=== PATIENT | female | born 1935 | race Caucasian/White ===

== ENCOUNTER 2016-12-02 12:05 | Inpatient (IN) ==
[~2016-12-02 12:05] MED LIST: TORADOL IM ONE
[2016-12-02] MEDS ORDERED: TORADOL IV PRN (13:25)
[2016-12-02] MEDS ORDERED: PHENERGAN IV PRN (13:25)
[2016-12-02] MEDS ORDERED: MIRALAX PO ONE (13:26)
--- NOTE | 2016-12-02 15:32 | Diag Imaging Result Doc PS360 ---
EXAM: MRI LUMBAR SPINE W/O CONTRAST HISTORY: Back pain TECHNIQUE: Axial and sagittal images obtained in multiple sequences. COMPARISON: None. FINDINGS: There is mild scoliosis. No compressed lumbar vertebra. There is abnormal signal within the T12 vertebra with mild loss of height. The conus is at T12-L1. There are scattered Schmorl's nodes. T12-L1: No spinal stenosis or cord compression. Neither neural foramen is narrowed. Normal disc. L1-2: Mild to moderate disc bulge. Mild facet hypertrophy. No spinal stenosis. Neither neural foramen is narrowed. L2-3: Mild bulging disc. Moderate facet hypertrophy. Mild spinal stenosis. Neither neural foramen is narrowed. L3-4: Small bulging disc. Moderate facet hypertrophy. Mild spinal stenosis. Neither neural foramen is narrowed. L4-5: There is a small bulging disc with a vacuum phenomena. Prominent facet hypertrophy. There is marked spinal stenosis. There is mild to moderate narrowing of each neural foramen. L5-S1: There is a right lateral disc bulge. This causes moderate narrowing of the right neural foramen. There is also facet hypertrophy with moderate spinal stenosis. IMPRESSION: 1.Edema within the T12 vertebra consistent with a recent compression fracture 2.Multiple bulging discs with facet hypertrophy resulting in spinal stenosis and neural foraminal narrowing as described. Spinal stenosis is most pronounced at L4-5. Electronically signed by Riki Byrnes 12/02/2016 3:29 PM
--- NOTE | 2016-12-02 15:36 | Diag Imaging Result Doc PS360 ---
EXAM: MRI THORACIC SPINE W/WO CONTR HISTORY: backpain TECHNIQUE: Axial and sagittal images obtained in multiple sequences. These are followed by post contrasted axial and sagittal images. COMPARISON: None. FINDINGS: There is abnormal signal within the T12 vertebra. There is loss of height to the superior endplate. No other compressed thoracic vertebra. No subluxation. No disc herniation. No disc fragment. There is posterior bulging bone along the superior aspect of the T12 vertebra. This causes mild spinal stenosis, but no cord compression. No focal abnormality to the thoracic cord. No enhancing lesion on the post contrasted images. IMPRESSION: Recent compression fracture to the T12 vertebra with mild spinal stenosis. Electronically signed by Riki Byrnes 12/02/2016 3:34 PM
[2016-12-02] MEDS ORDERED: TORADOL IM ONE (16:58)
[2016-12-02] MEDS ORDERED: PHENERGAN IM ONE (17:00)
[2016-12-02] MEDS: LOVENOX SUBQ SCH (17:12)
[2016-12-02 17:58] LABS: URINE MICRO REVIEW NEEDED? NO; URINE SOURCE VOIDED
[2016-12-02 18:01] LABS: BILIRUBIN URINE NEGATIVE (NEGATIVE); BLOOD URINE NEGATIVE (NEGATIVE); COLOR YELLOW; GLUCOSE URINE NEGATIVE (NEGATIVE); LEUKOCYTES URINE MODERATE (NEGATIVE); NITRITE URINE POSITIVE (NEGATIVE); PH URINE 6.5; PROTEIN URINE TRACE mg/dL (NEGATIVE); SP GRAVITY URINE 1.018; TURBIDITY URINE HAZY (CLEAR); UR EPITHELIAL CELLS <10 /HPF (<10); URINE BACTERIA 4+ /HPF; URINE RBC <10 /HPF (<10); URINE WBC TNTC /HPF (<10); UROBILINOGEN URINE 2 mg/dL (NORMAL)
[2016-12-02 20:13] LABS: MANUAL DIFF NEEDED? NO
[2016-12-02 20:18] LABS: BASO% 0.2 % (0.0-0.8); EOS# 0.27 X1000 (0.0-0.7); EOS% 1.7 % (0.0-10.0); HEMATOCRIT 37.3 % (37.0-47.0); HEMOGLOBIN 12.9 g/dL (12.0-16.0); IMM GRAN# 0.06 X1000 (0.0-0.04); IMM GRAN% 0.4 % (0.0-0.5); LYMPH# 3.03 X1000 (1.2-3.4); LYMPH% 19.5 % (20.5-51.1); MCHC 34.6 g/dL (33-37); MCV 89.7 FL (81-99); MONO# 1.13 X1000 (0.11-0.59); MONO% 7.3 % (1.7-9.3); MPV 9.3 FL (7.4-10.4); NEUT% 70.9 % (42.2-75.2); PLT 320 X1000 (130-400); RBC 4.16 XMIL (4.2-5.4)
[2016-12-02 20:35] LABS: AGAP 14; ALBUMIN 3.6 g/dL (3.5-5.0); ALKALINE PHOSPHATASE 98 U/L (32-104); AMYLASE 35 U/L (20-200); BUN 17 mg/dL (8-22); CHLORIDE 94 mmol/L (98-107); COSMO 269; GOT 14 U/L (10-30); GPT 19 U/L (10-36); POTASSIUM 3.7 mmol/L (3.5-5.1); SODIUM 133 mmol/L (136-145); TCO2 25 mmol/L (25-35); TOTAL BILIRUBIN 0.31 mg/dL (0.20-1.00); TOTAL PROTEIN 5.7 g/dL (6.3-8.3)
[2016-12-02] MEDS: ZOCOR PO SCH (22:19)
[2016-12-02] MEDS: CITRACAL + D PO SCH (22:19)
[2016-12-02] MEDS: AMBIEN PO PRN (22:20)
[2016-12-02] MEDS: ASPIRIN PO SCH (22:20)
[2016-12-02] MEDS: DULCOLAX PR SCH (22:21)
[2016-12-02] MEDS: MIRALAX PO SCH (22:21)
[2016-12-02] MEDS: PREMARIN PO SCH (22:24)
[2016-12-02] MEDS: NORCO-7.5 PO PRN (23:18)
--- NOTE | 2016-12-03 04:26 | HISTORY AND PHYSICAL ---
SUBJECTIVE: 1. Back pain for the last 10 days after a fall at her work place,localized. 2. Constipation. 3. Nausea and vomiting. 4. Dysuria. HISTORY OF PRESENT ILLNESS: She is an 81-year-old white female, who was seen in my office with dizzy spell due to BPV on 11/18/2016, associated with injury to the right elbow , and lower back pain. She has a mild abrasion on the right elbow. No definitive acute bony injury identified under clinical exam. X-ray lumbar spine is negative. She was sent home on Toradol and conservative management. She was brought in by the son this afternoon with pain. It is not helping. She is nauseated. She is constipated, unable to pee. She has been hospitalized. 1. Impending dehydration, for IV fluids. 2. Nausea medicines. 3. Evaluation of the back pain to rule out any compression fracture. As a result, hospital admission was warranted. PAST MEDICAL HISTORY: Atypical chest pain. Stress test was negative in 2009. Overactive bladder. Right leg venous insufficiency. Hypertension, hyperlipidemia, hypothyroidism, chronic lymphedema, metabolic syndrome. Benign positional vertigo. PAST SURGICAL HISTORY: Left knee replacement. Cystocele repair. Small bowel obstruction due to adhesions. Bilateral cataract surgery. Right knee replacement. Botox injection. Total hysterectomy in 1981 at [facility]. Bladder repair. MEDICATIONS: Ambien 5 mg at bedtime, aspirin 81 mg daily, Flexeril 10 mg daily , Lasix 20 daily, Hyzaar 50/12.5 daily, potassium 10 mEq daily, lactulose 30 mL 3 times daily, Linzess 144 mcg daily, Prilosec 40 daily, Premarin 0.625 daily, simvastatin 20 daily, Synthroid 75 mcg daily, Zofran as needed, Toradol was prescribed. ALLERGIES: Not known. SOCIAL HISTORY: , 3 kids. 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 No smoking, no alcohol. FAMILY HISTORY: Father of stroke at 94. Mom of dementia at 95. HEALTH MAINTENANCE: Flu vaccine in 2015, pneumococcal vaccine in 2012, shingles in 2007. Mammography 11/16/2016. Colonoscopy 08/[address] Long. REVIEW OF SYSTEMS: HEENT: Intermittent dizzy spells from inner ear. No headache. No vision problem. Neck: No neck pain. No carotid bruit. No goiter. Cardiopulmonary : No chest pain, shortness of breath, PND, orthopnea. Gastrointestinal: Nausea. Not able to eat. Constipation. Back: Intractable back pain. Not able to walk. No weakness. Genitourinary: History of dysuria, hesitancy. No swelling of legs. Neurologic: No obvious weakness. PHYSICAL EXAMINATION: VITAL SIGNS: Afebrile. Blood pressure is 180/90. 5 feet 11 and 194 pounds. HEENT: Atraumatic, normocephalic. Pupils equal, react to light. TMs are normal. Nose and throat within normal limits. NECK: Supple. No lymphadenopathy. CHEST: Clear to auscultation. HEART: Sounds are regular. ABDOMEN: Belly is soft, obese, nontender. Good bowel sounds. No signs of peritonitis. EXTREMITIES: No peripheral edema or cyanosis. No obvious neurological deficits. INVESTIGATIONS: Flat and upright of the abdomen: Prominent stool in the right colon. Chest x- ray is clear. X-ray of thoracic spine: Possible compression at T12. X-ray of the L-spine is negative for acute bony injury. Urinalysis positive for infection. Poor IV access. Unable to get a blood workup pending. ASSESSMENT: An 81-year-old white female admitted to the hospital with intractable nausea, constipation, and intractable back pain associated with injury. PLAN: 1. Back pain. Rule out compression fracture. MRI of thoracic spine and L- spine. 2. Impending dehydration. IV fluids. 3. Deep venous thrombosis prophylaxis. Gastrointestinal prophylaxis with Lovenox and proton pump inhibitor respectively. 4. Poor IV access. 5. Reconcile home medicines. 6. Constipation. We will use the Linzess, Dulcolax, and MiraLAX for symptomatic treatment. 7. Toradol for pain and nausea with Phenergan. 8. Hypothyroidism, on Synthroid. 9. Based on the MRI, further recommendations will be followed. 10. Follow up on the pending labs. Also, assess for physical therapy evaluation. cc: MD GELACIO Kiran
[2016-12-03] MEDS: SYNTHROID PO SCH ×2 (05:57→07:40)
[2016-12-03] MEDS ORDERED: PHENERGAN IM ONE (07:48)
[2016-12-03] MEDS: HYZAAR 50/12.5 MG PO SCH (08:25)
[2016-12-03] MEDS: VITAMIN B-12 PO SCH (08:25)
[2016-12-03] MEDS: KLOR-CON PO SCH (08:25)
[2016-12-03] MEDS: LINZESS PO SCH (08:25)
[2016-12-03] MEDS: MIRALAX PO SCH ×2 (08:25→20:31)
[2016-12-03] MEDS: LOVENOX SUBQ SCH ×2 (08:26→13:24)
[2016-12-03] MEDS ORDERED: OMEPRAZOLE PO SCH (09:00)
[2016-12-03] MEDS: PATIENT'S OWN MED PO SCH (09:02)
[2016-12-03] MEDS: NS 1,000 ML IV SCH ×3 (09:05→15:24)
[2016-12-03] MEDS ORDERED: TORADOL IM ONE (09:06)
[2016-12-03 09:12] LABS: INR 0.99; PROTIME 10.4 Seconds (9.2-11.7)
[2016-12-03] MEDS: FORTICAL NAS SCH (10:34)
[2016-12-03] MEDS: PROTONIX IV SCH (13:24)
[2016-12-03] MEDS: SODIUM CHLORIDE 0.9% INJ SCH (13:24)
[2016-12-03] MEDS: SOLU-MEDROL IV SCH (18:59)
[2016-12-03] MEDS ORDERED: SODIUM CHLORIDE 0.9% INJ PRN (19:53)
[2016-12-03] MEDS ORDERED: PHENERGAN IV PRN (19:53)
[2016-12-03] MEDS: TORADOL IV SCH (20:22)
[2016-12-03] MEDS: ZOCOR PO SCH (20:29)
[2016-12-03] MEDS: ASPIRIN PO SCH (20:30)
[2016-12-03] MEDS: CITRACAL + D PO SCH (20:30)
[2016-12-03] MEDS: DULCOLAX PR SCH (20:31)
--- NOTE | 2016-12-03 20:42 | PROGRESS NOTE ---
DATE: 12/03/2016 SUBJECTIVE: For the past 24 hours, there was no IV access. Patient is a lot of pain. Nausea. No BM for the last 6 days. No fever. Localized back pain without any focal symptoms. REVIEW OF SYSTEMS: HEENT: No headaches. Cardiopulmonary: No chest pain, shortness of breath, PND, orthopnea. GI: Nausea, constipation, mid back pain. : No history of hesitancy, frequency dysuria. PHYSICAL EXAMINATION: Vitals: Are stable. Input and output +874. HEENT: Exam within normal limits. Neck: Supple. Chest: Clear. Heart: Sounds are regular. Abdomen: Belly is soft, nontender. Good bowel sounds. Neurologic: No obvious neurological deficits noted. INVESTIGATIONS: CBC: White cell count 15, hematocrit 37, platelets 320,000. PT/INR is normal. SMA7: Sodium 133. Urinalysis: Positive for infection. Urine cultures are pending. ASSESSMENT AND PLAN: 1. Mid back pain due to T12 compression fracture without any myelopathy. Plan is IV steroids. 2. Poor IV access. We will ask foundry laborer coreroom team for IV access. If not successful, consider PICC line. 3. Impending dehydration. IV fluids. 4. Pain control with Tylenol and Phenergan. 5. Constipation. We will use the Linzess, MiraLAX and Dulcolax. 6. DVT and gastrointestinal Prophylaxis with Lovenox and Protonix respectively. 7. Elevated white cell count. Follow up on urinalysis and culture and sensitivity. Chest x-ray was stable. 8. T12 compression fracture. Back brace, IV steroids and calcitonin. Other options are kyphoplasty. 9. Hypertension. Reconcile home medications. Discussed with the family. LEVEL OF DOCUMENTATION: 35 minutes. cc: Hari Farah MD
[2016-12-03] MEDS: PREMARIN PO SCH (23:51)
[2016-12-03] MEDS: AMBIEN PO PRN (23:51)
[2016-12-04] MEDS: SOLU-MEDROL IV SCH ×4 (03:03→17:41)
[2016-12-04] MEDS: TORADOL IV SCH ×4 (03:04→20:44)
[2016-12-04] MEDS: NS 1,000 ML IV SCH ×2 (03:06→16:13)
[2016-12-04] MEDS: SYNTHROID PO SCH (06:14)
[2016-12-04] MEDS ORDERED: ZOFRAN IV PRN (08:46)
[2016-12-04] MEDS: LINZESS PO SCH (09:09)
[2016-12-04] MEDS: VITAMIN B-12 PO SCH (09:09)
[2016-12-04] MEDS: LOVENOX SUBQ SCH (09:09)
[2016-12-04] MEDS: HYZAAR 50/12.5 MG PO SCH (09:10)
[2016-12-04] MEDS: MIRALAX PO SCH ×2 (09:10→20:43)
[2016-12-04] MEDS: KLOR-CON PO SCH (09:10)
[2016-12-04] MEDS: FORTICAL NAS SCH (09:12)
[2016-12-04] MEDS: PATIENT'S OWN MED PO SCH (11:19)
[2016-12-04] MEDS: PROTONIX IV SCH ×2 (13:33→16:13)
[2016-12-04] MEDS: SODIUM CHLORIDE 0.9% INJ SCH (13:33)
--- NOTE | 2016-12-04 18:56 | PROGRESS NOTE ---
DATE: 12/04/2016 SUBJECT: Patient complains of headache, back pain is better localized, no focal symptoms and eating well. Decreased nausea, last BM 6 days ago. REVIEW OF SYSTEMS: Otherwise none reported.Vital Signs: Stable, afebrile, blood pressure is 150/67, I's and O's positive 1100. HEENT Exam: Within normal limits. Chest: Clear. Heart: Sounds are regular. Belly: Soft, nontender. Good bowel sounds. Nonfocal. LABS: No labs were obtained. Urine cultures positive for gram-negative rods. ASSESSMENT AND PLAN: 1. T12 compression fracture. Back brace, physical therapy, IV steroids. 2. Impending dehydration. IV fluids. 3. Hypothyroidism on Synthroid. 4. Constipation due to irritable bowel syndrome on Linzess, MiraLAX and Dulcolax. 5. For pain control Toradol and Zofran as needed for nausea. 6. Will repeat the labs in the morning. 7. Urine cultures are positive for gram-negative rods asymptomatic, continue to monitor and follow up on CBC in the morning. LEVEL OF DOCUMENTATION: 25 minutes. cc: Hari Farah MD MTDD
[2016-12-04] MEDS: DULCOLAX PR SCH (20:43)
[2016-12-04] MEDS: CITRACAL + D PO SCH (20:44)
[2016-12-04] MEDS: ZOCOR PO SCH (20:44)
[2016-12-04] MEDS: ASPIRIN PO SCH (20:44)
[2016-12-04] MEDS: AMBIEN PO PRN (22:44)
[2016-12-05] MEDS: PREMARIN PO SCH (02:49)
[2016-12-05] MEDS: SOLU-MEDROL IV SCH ×2 (02:49→03:48)
[2016-12-05] MEDS: TORADOL IV SCH ×2 (02:49→08:16)
[2016-12-05] MEDS: NS 1,000 ML IV SCH ×2 (03:59→04:00)
[2016-12-05 04:16] VITALS: BP 192/80
[2016-12-05] MEDS: SYNTHROID PO SCH ×2 (05:48→07:35)
[2016-12-05 07:27] LABS: HEMATOCRIT 36.8 % (37.0-47.0); HEMOGLOBIN 12.7 g/dL (12.0-16.0); IMM GRAN# 0.09 X1000 (0.0-0.04); IMM GRAN% 0.4 % (0.0-0.5); LYMPH# 1.09 X1000 (1.2-3.4); LYMPH% 4.3 % (20.5-51.1); MANUAL DIFF NEEDED? YES; MCH 30.9 PG (27-31); MCHC 34.5 g/dL (33-37); MCV 89.5 FL (81-99); MONO# 0.91 X1000 (0.11-0.59); MONO% 3.6 % (1.7-9.3); MPV 10.1 FL (7.4-10.4); NEUT% 91.7 % (42.2-75.2); PLT 311 X1000 (130-400); RBC 4.11 XMIL (4.2-5.4)
[2016-12-05 07:46] LABS: AGAP 14; BUN 13 mg/dL (8-22); CHLORIDE 96 mmol/L (98-107); COSMO 268; POTASSIUM 3.9 mmol/L (3.5-5.1); SODIUM 133 mmol/L (136-145); TCO2 23 mmol/L (25-35)
[2016-12-05] MEDS: LINZESS PO SCH (08:13)
[2016-12-05] MEDS: HYZAAR 50/12.5 MG PO SCH (08:13)
[2016-12-05] MEDS: KLOR-CON PO SCH (08:14)
[2016-12-05] MEDS: FORTICAL NAS SCH (08:14)
[2016-12-05] MEDS: LOVENOX SUBQ SCH (08:14)
[2016-12-05] MEDS: NORCO-7.5 PO PRN (08:14)
[2016-12-05] MEDS: VITAMIN B-12 PO SCH (08:14)
[2016-12-05] MEDS: MIRALAX PO SCH (08:15)
[2016-12-05 09:14] LABS: BANDS 2 % (0-1); LYMPHS 4 % (21-51); MONO 4 % (1-9)
--- NOTE | 2016-12-05 19:02 | DISCHARGE SUMMARY ---
ADMISSION DATE: 12/02/2016 DISCHARGE DATE: 12/05/2016 DISCHARGING DIAGNOSES: 1. Intractable back pain due to traumatic T12 compression fracture. 2. Urinary tract infection asymptomatic. 3. Constipation due to irritable bowel syndrome. 4. Incontinence of urine status post Botox. 5. Vertigo due to benign positional paroxysmal vertigo. 6. Chronic bilateral lymphedema. 7. Hypertension, hyperlipidemia, hypothyroidism, metabolic syndrome, dehydration, poor IV access. BRIEF HISTORY: Please see the H and P that was done on 12/02/2016. In brief, she is an 81-year- old white female who was admitted to the hospital with intractable back pain, nausea, vomiting, constipation. HOSPITAL COURSE: She was in a lot of pain. She was given IV Toradol and Zofran after a successful IV access. She was also given IV fluids. During this hospital course, problems as follows: 1. History of fall, sustained injury 4 weeks ago and x-rays did not reveal any acute bony injury. MRI of the L-spine and T-spine showed T12 compression fracture. Neurological exam is intact. Patient was given back brace, IV steroids and Toradol. Pain is 1/10 able to ambulate. 2. Dehydration. Given IV fluids. Able to eat very well. 3. Constipation due to irritable bowel syndrome for which she was given Linzess, MiraLAX, Dulcolax and with good bowel movements. 4. Possible urinary tract infection, asymptomatic. We will follow up. The patient was also given vitamin D and calcitonin for pain control. If fails to improve, we will do outpatient kyphoplasty referral to spine and neurosurgeon. She needs some home health care for assistance for the ADLs and physical therapy. LABS: CBC: White cell count 25, hematocrit 36, platelets 311,000. SMA 7: Sodium 133, potassium 3.9, chloride 96, BUN 13, creatinine 0.7, glucose 132. Urine culture showing Enterobacter pyrogenes which is sensitive to Levaquin. DISCHARGE INSTRUCTIONS ARE FOLLOWS: 1. Synthroid 75 mcg daily. 2. Vitamin B12 2000 mcg daily. 3. Prilosec 40 daily. 4. Biotin 1 tablet every day. 5. Aspirin 81 mg daily. 6. Multivitamin 1 tablet daily. 7. Simvastatin 20 mg daily. 8. Premarin 0.625 mg daily. 9. Potassium 10 mg daily. 10. Calcium citrate 1 tablet daily. 11. Lactulose as needed. 12. Linzess 145 mcg daily. 13. Hyzaar 50/12.5 daily. 14. Calcitonin 1 spray alternate nostril daily. 15. Vitamin D 69504 once a week. 16. Toradol 10 mg q.6 for p.r.n. pain. 17. Medrol Dosepak. 18. Zofran for nausea. 19. Outpatient [facility] and follow up in my office next week. cc: Hari Farah MD
== END 2016-12-05 12:22 | disposition home health service (06) ==
LOC: DIRADM → OBSVTOIN 12:05 → 4N 12:53
PROVIDERS: ADMIT Internal Medicine; ATTEND Internal Medicine

== ENCOUNTER 2019-02-17 17:10 | Inpatient (IN) ==
[2019-02-17] MEDS ORDERED: MORPHINE IV PRN (17:20)
[2019-02-17] MEDS ORDERED: SODIUM CHLORIDE 0.9% INJ SCH (17:30)
--- NOTE | 2019-02-17 18:03 | Diag Imaging Result Doc PS360 ---
EXAM: CHEST-2 VIEWS 02/17/2019 HISTORY: SOB TECHNIQUE: PA and lateral chest COMMENT: There is a hiatal hernia. There is a compression fracture which has apparently been treated with kyphoplasty at T12. There may be COPD. There is no definite evidence of acute cardiac or pulmonary disease. Compared to the previous study of 10/25/2017 there has been no appreciable change. IMPRESSION: COPD. Electronically signed by Gurvinder Fontenot 02/17/2019 6:01 PM
--- NOTE | 2019-02-17 18:43 | EKG Report ---
Test Performed on : 02/17/2019 6:31:38 PM Test Reason : chest pain Blood Pressure : / mmHG Vent. Rate : 064 BPM Atrial Rate : 064 BPM P-R Int : 166 ms QRS Dur : 086 ms QT Int : 390 ms P-R-T Axes : 062 007 043 degrees QTc Int : 402 ms Normal sinus rhythm. Normal ECG When compared with ECG of 09-OCT-2009 07:07, No significant change was found Confirmed by Austin Duarte MD ([id number]) on 02/18/2019 7:44:19 AM
[2019-02-17 18:49] LABS: BASO# 0.11 X1000 (0.0-0.2); EOS# 0.16 X1000 (0.0-0.7); EOS% 1.4 % (0.0-10.0); HEMATOCRIT 47.6 % (37.0-47.0); HEMOGLOBIN 15.4 g/dL (12.0-16.0); IMM GRAN# 0.02 X1000 (0.0-0.04); IMM GRAN% 0.2 % (0.0-0.5); LYMPH% 17.5 % (20.5-51.1); MCH 30.7 PG (27-31); MCHC 32.4 g/dL (33-37); MONO# 0.97 X1000 (0.11-0.59); MONO% 8.5 % (1.7-9.3); MPV 10.5 FL (7.4-10.4); NEUT% 71.4 % (42.2-75.2); PLT 361 X1000 (130-400); RBC 5.01 XMIL (4.2-5.4); RDW 14.3 % (11.5-14.5); WBC 11.46 X1000 (4.8-10.8)
[2019-02-17] MEDS ORDERED: XANAX PO PRN (18:55)
[2019-02-17 19:07] LABS: ALB/GLOB RATIO 1.4; CALCIUM 9.2 mg/dL (8.8-10.2); CREATININE 0.9 mg/dL (0.5-0.9); POTASSIUM 4.2 mmol/L (3.5-5.1); TOTAL BILIRUBIN 0.47 mg/dL (0.20-1.00); TOTAL PROTEIN 6.9 g/dL (6.3-8.3)
[2019-02-17] MEDS: ULTRAM ER PO SCH ×2 (19:32→21:59)
[2019-02-17] MEDS: PROTONIX IV SCH (19:33)
[2019-02-17] MEDS: ZOCOR PO SCH ×2 (19:33→21:59)
[2019-02-17] MEDS: LOVENOX SUBQ SCH (19:34)
[2019-02-17] MEDS ORDERED: SALINE LOCK IV FLUID XX ONE (20:01)
[2019-02-17] MEDS ORDERED: NITROGLYCERIN SL PRN (20:01)
[2019-02-17] MEDS ORDERED: TYLENOL PO PRN (20:01)
[2019-02-17] MEDS ORDERED: ZOFRAN IV PRN (20:01)
--- NOTE | 2019-02-17 20:36 | HISTORY AND PHYSICAL ---
CHIEF COMPLAINT: Chest pain, evaluation 2 days ago. HISTORY OF PRESENT ILLNESS: She is an 83-year-old white female who came to my office 2 days ago with chest pain going to the neck. Initial EKG was unremarkable. The patient was scheduled for stress test at [facility]. The patient had a Lexiscan test done. It showed positive chest pain currently. EKG: ST depression V4, V5, with 3-beat nonsustained ventricular tachycardia. The pain lasted throughout the Lexiscan. During recovery the patient was given sublingual nitroglycerin. Hemodynamics were stable. Scan reported unofficially some stress- related defects, anterior wall and inferior wall. Given the positive stress test, the patient was admitted to the hospital for further evaluation. Currently she is pain-free. No shortness of breath, PND, orthopnea. No syncope. The patient also has limited activity. I spoke to Dr. Macdonald. He wants to admit over the weekend, define the coronary anatomy by left heart catheterization on Wednesday. PAST MEDICAL HISTORY: Hypertension, overactive bladder, antithrombin 3 deficiency. Last stress test was negative in [address] Pagan. Multiple compression fractures in the back, hiatal hernia, hyperlipidemia, hypertension, hypothyroidism, lymphedema in both legs, metabolic syndrome, history of pulmonary embolism, history of BPV in the past. PAST SURGICAL HISTORY: T12 kyphoplasty, bilateral knee replacement, cystocele repair, small-bowel obstruction due to adhesions, bilateral cataract surgery, Botox injection for the bladder, total hysterectomy. MEDICATIONS: Synthroid 75 mcg daily; Prilosec 40 daily; biotin 2500 mcg daily; tramadol 300 daily; Ambien 5 at bedtime; naproxen as needed; Lidoderm patches; Xanax 0.25 daily; Cymbalta 20 daily; vitamin D 50,000 units once a week; MiraLAX 17 g daily; simvastatin 20 mg daily. ALLERGIES: Not known. SOCIAL HISTORY: Single, [facility] [place]. No smoking, no alcohol. Retired. FAMILY HISTORY: Father of stroke at 94. Mother at 95 from dementia. HEALTH MAINTENANCE: Flu vaccine 2017, pneumococcal 2013, shingles in 2007. Last mammogram 2016. Colonoscopy: Dr. Long 08/2013. REVIEW OF SYSTEMS: HEENT: No headache, no vision problem. No earache. No sore throat. Neck: No goiter. No lymphadenopathy. No bruit. Cardiopulmonary: Chest pain, one time, nonexertional. No shortness of breath, PND, orthopnea. GI: No nausea, vomiting, abdominal pain. : History of hesitancy and frequency due to overactive bladder. No dysuria. Swelling of legs, chronic back pain due to osteoporosis, compression fracture. Neurological: No focal symptoms or weakness. PHYSICAL EXAMINATION: VITAL SIGNS: Temperature is 99.9 degrees, pulse 64, blood pressure 160/83. GENERAL: Five feet 11 inches, 234 pounds. HEENT: Exam atraumatic, normocephalic. Pupils equal and react to light. TMs are normal. Nose and throat within normal limits. NECK: Supple. No lymphadenopathy. No goiter. CHEST: Bilateral air entry. HEART: Sounds are regular. No murmur. ABDOMEN: Belly is soft, nontender. Good bowel sounds. No masses palpable. EXTREMITIES: Lymphedema noted. NEUROLOGIC: No neurological deficits. LABORATORY DATA: CBC: White cell count 11, hematocrit 47, platelets 143,000. SMA 7: Sodium 131, potassium 4.2, BUN 18, creatinine 0.9, glucose 117. Cardiac enzymes were negative. DIAGNOSTIC DATA: Chest x-ray was stable. EKG completely normal. ASSESSMENT AND PLAN: 1. An 83-year-old white female admitted to the hospital with chest pain, positive stress test. Dr. Macdonald is going to look at the scan tomorrow. Admit to [facility]. Plan is aspirin, and morphine for pain, nitroglycerin as needed. 2. History of pulmonary embolism. High risk. Lovenox was initiated. 3. Reconcile home medications. Consult with Dr. Macdonald. 4. Gastrointestinal prophylaxis with Prilosec. 5. The patient is currently pain-free, stable. I spoke to the family members about the test results and discussed the plan of care. Will follow up. cc: Hari Farah MD
[2019-02-17] MEDS: MIRALAX PO SCH (21:31)
[2019-02-17 21:33] LABS: URINE SOURCE CLEAN CATCH
[2019-02-17 21:40] LABS: BILIRUBIN URINE NEGATIVE (NEGATIVE); BLOOD URINE NEGATIVE (NEGATIVE); COLOR YELLOW; GLUCOSE URINE NEGATIVE (NEGATIVE); KETONE URINE NEGATIVE (NEGATIVE); LEUKOCYTES URINE NEGATIVE (NEGATIVE); NITRITE URINE NEGATIVE (NEGATIVE); PH URINE 5.5; PROTEIN URINE NEGATIVE (NEGATIVE); SP GRAVITY URINE 1.011; TURBIDITY URINE CLEAR (CLEAR); UR EPITHELIAL CELLS <10 /HPF (<10); URINE BACTERIA 4+ /HPF; URINE RBC <10 /HPF (<10); URINE WBC <10 /HPF (<10); UROBILINOGEN URINE NORMAL (NORMAL)
[2019-02-17] MEDS: AMBIEN PO PRN (21:40)
[2019-02-18] MEDS: PRILOSEC PO SCH (06:08)
[2019-02-18] MEDS ORDERED: PRILOSEC PO SCH (07:00)
[2019-02-18] MEDS ORDERED: ASPIRIN PO SCH (09:00)
[2019-02-18] MEDS: ASPIRIN PO SCH (09:17)
[2019-02-18] MEDS: PATIENT'S OWN MED PO SCH (09:17)
[2019-02-18] MEDS: CYMBALTA PO SCH (09:18)
[2019-02-18] MEDS: SYNTHROID PO SCH (09:18)
--- NOTE | 2019-02-18 11:43 | PROGRESS NOTE ---
DATE: 02/18/2019 SUBJECTIVE: The patient is not have any shortness of breath or pain now. What she did describe was substernal chest pain when this started then went up to her jaw. She had diaphoresis, nausea and shortness of breath. Cardiac enzymes have been negative. Apparently had her stress test and echo yesterday afternoon but I have no results back. OBJECTIVE: Vital Signs: Blood pressure 186/66, respirations 18, pulse 54, temperature 97.9 degrees Fahrenheit. HEENT: She is normocephalic. EOMS intact. PERRLA. Throat clear. Lungs: Clear to auscultation and percussion without rhonchi, rales, or wheezes. Heart: Regular rate and rhythm without murmurs, gallops, friction rubs. Abdomen: Soft. Active bowel sounds. No organomegaly or tenderness. Neurological: Intact grossly. LABORATORY DATA: [place] [address], hemoglobin 15.4. Sodium 131, potassium 4.2. Troponins and CKs were all negative. ASSESSMENT: Chest pain. PLAN: We will await studies. cc: MD Hari Jordan Jr, MD
[2019-02-18] MEDS: COZAAR PO SCH (13:34)
--- NOTE | 2019-02-18 13:48 | CARDIOLOGY CONSULTATION ---
DATE: 02/18/2019 HISTORY OF PRESENT ILLNESS: Ms. Noonan is an 83-year-old female, normally follows with Dr. Pagan, the last visit was around a year and a half ago. She had an episode of chest pain on evening that happened at rest. She was not able to describe the quality of it but it was located in the epigastrium, radiated up the back of her throat to her jaw. She could not report what she ate that evening. She may have had some diaphoresis associated with it but denied any nausea or vomiting. She has had indigestion before and thinks that this was different than those episodes. She had nuclear perfusion imaging yesterday but unfortunately, we do not have the results of that back at this time. She has not had any pain complaints and she presented to the hospital. PAST MEDICAL HISTORY: 1. Significant for hypertension. 2. History of pulmonary embolism. 3. History of atypical chest pain with normal nuclear stress in 2016. 4. Mitral regurgitation. 5. Lymphedema. 6. Vertigo. 7. Hypothyroidism. 8. Reflux disease. SOCIAL HISTORY: She lives in [place]. She does not smoke. No alcohol. FAMILY HISTORY: Father of a stroke at 94. Mother at 95 with complications from dementia. REVIEW OF SYSTEMS: A 10 system review of systems is negative except for those things mentioned in HPI. PHYSICAL EXAMINATION: Vital signs: She is afebrile, most recent heart rate is 54, on presentation it was 64. Blood pressure 186/66, on presentation it was 160/83. General: She is in no acute distress. HEENT: Oropharynx is moist. Poor dentition. Eye examination shows pink conjunctivae, white sclerae. Neck: Shows no obvious thyromegaly or thyroid tenderness. Cardiovascular: She sounds to be in a regular rate and rhythm. She has no obvious murmurs. She has no S3. She has edema in her bilateral lower extremities that seems most consistent with lymphedema. Chest: Sounds clear to auscultation bilaterally. She has no increased work of breathing. Abdomen: Soft, nontender, nondistended. She has no obvious organomegaly. Skin: Warm and dry throughout without any rashes. Neurological: She is moving all extremities well. She has no lateralizing deficits. PERTINENT DATA: Her electrocardiogram on presentation is reviewed by me, is essentially normal, normal sinus, 64 beats per minute. Normal intervals, normal axis. No ischemic changes. Her chest x-ray is remarkable for COPD type changes, previous kyphoplasty noted. LABORATORY DATA: White count of 11.4, hematocrit 47, platelet count 361,000. Sodium 131, potassium 4.2, her BUN is 18, creatinine 0.9. Cardiac enzymes negative times multiple sets. ASSESSMENT: Ms Noonan is an 83-year-old female who had an episode of atypical chest pain. PLAN: I will review the myocardial perfusion scans today. Further recommendations to follow. Her blood pressure is quite elevated. She has not initiated back on her home Lasix and losartan. I have initiated those medications. cc: MD Hari Damian MD
[2019-02-18] MEDS: PROTONIX IV SCH (20:24)
[2019-02-18] MEDS: AMBIEN PO PRN (20:25)
[2019-02-18] MEDS: LOVENOX SUBQ SCH (20:25)
[2019-02-18] MEDS: ULTRAM ER PO SCH (20:25)
[2019-02-18] MEDS: MIRALAX PO SCH (20:28)
[2019-02-18] MEDS: ZOCOR PO SCH (20:28)
[2019-02-19] MEDS: PRILOSEC PO SCH ×2 (05:41→06:22)
[2019-02-19] MEDS: LASIX PO SCH (08:44)
[2019-02-19] MEDS: MACROBID PO SCH ×2 (08:44→20:53)
[2019-02-19] MEDS: SYNTHROID PO SCH (08:44)
[2019-02-19] MEDS: COZAAR PO SCH (08:44)
[2019-02-19] MEDS: CYMBALTA PO SCH (08:44)
[2019-02-19] MEDS: ASPIRIN PO SCH (08:44)
[2019-02-19] MEDS: PATIENT'S OWN MED PO SCH (10:34)
--- NOTE | 2019-02-19 13:16 | PROGRESS NOTE ---
DATE: 02/19/2019 SUBJECTIVE: The patient has had no more chest pain. I do not have her stress test results back. Dr. Macdonald, the store merchandiser, was going to check on those and he should be by later today. OBJECTIVE: Vital Signs: Blood pressure 184/68, respirations 16, pulse 53, temperature 97.5 degrees Fahrenheit. HEENT: She is normocephalic. EOMs intact. PERRLA. Throat clear. Lungs: Clear to auscultation and percussion without rhonchi, rales, or wheezes. Heart: Regular rate and rhythm without murmurs, gallops, or friction rubs. Abdomen: Soft. Active bowel sounds. No organomegaly or tenderness. Neurological Examination: Intact grossly. Laboratory Data: Urine culture did grow out Klebsiella oxytoca that is sensitive to Macrobid so I started her on Macrobid today at 100 mg p.o. b.i.d. for 10 days. I will leave a prescription with her if she gets to be discharged today. It depends on whether her stress test was negative or positive, and what other plans cardiology may have for her. ASSESSMENT: 1. Chest pain. 2. Urinary tract infection. PLAN: Start the Macrobid today. She possibly could go home today if there is no further cardiac workup to be done. If there is, then she will stay and Dr. Farah will see her tomorrow. cc: MD Hari Jordan Jr, MD
--- NOTE | 2019-02-19 15:06 | CARDIOLOGY PROGRESS NOTE ---
DATE: 02/19/2019 SUBJECTIVE: Ms. Noonan has no pain complaints today. She is ambulating, tolerating oral intake. PHYSICAL EXAMINATION: Vital signs: Afebrile. Heart rate 53. Her blood pressure is 184/68. General: She is in no acute distress. Cardiovascular: She sounds to be in a regular rate and rhythm. She has no obvious murmurs. She has no S3 present. She has no lower extremity edema. Chest: Sounds clear bilaterally. She has no increased work of breathing. Abdomen: Soft, nontender. PERTINENT DATA: She has no new laboratory data today. Her stress test was reviewed from yesterday and demonstrated a normal ejection fraction. It was a difficult study. No EKG changes. Basically an equivocal study. Unable to completely rule out ischemia. ASSESSMENT: Ms. Noonan is an 83-year-old female who underwent stress testing for an episode of chest pain. PLAN: At this point, we will proceed with cardiac catheterization in the morning. The patient is a hypertensive with hyperlipidemia. Risks, benefits, and alternatives have been explained to her and her family member. We will proceed with this tomorrow. cc: MD Hari Damian MD
[2019-02-19] MEDS: PROTONIX IV SCH (20:53)
[2019-02-19] MEDS: ZOCOR PO SCH (20:53)
[2019-02-19] MEDS: MIRALAX PO SCH (20:53)
[2019-02-19] MEDS: ULTRAM ER PO SCH (20:54)
[2019-02-19] MEDS: LOVENOX SUBQ SCH (20:54)
[2019-02-19] MEDS: AMBIEN PO PRN (23:33)
[2019-02-20] MEDS: PRILOSEC PO SCH (06:22)
[2019-02-20 06:38] LABS: BASO# 0.06 X1000 (0.0-0.2); BASO% 0.5 % (0.0-0.8); EOS# 0.42 X1000 (0.0-0.7); EOS% 3.8 % (0.0-10.0); HEMATOCRIT 40.3 % (37.0-47.0); IMM GRAN# 0.02 X1000 (0.0-0.04); IMM GRAN% 0.2 % (0.0-0.5); LYMPH# 2.61 X1000 (1.2-3.4); LYMPH% 23.7 % (20.5-51.1); MCH 29.8 PG (27-31); MCHC 32.3 g/dL (33-37); MCV 92.4 FL (81-99); MONO# 0.83 X1000 (0.11-0.59); MONO% 7.5 % (1.7-9.3); MPV 10.6 FL (7.4-10.4); NEUT# 7.07 X1000 (1.4-6.5); NEUT% 64.3 % (42.2-75.2); PLT 268 X1000 (130-400); RBC 4.36 XMIL (4.2-5.4); RDW 13.8 % (11.5-14.5); WBC 11.01 X1000 (4.8-10.8)
[2019-02-20 06:45] LABS: INR 1.06; PROTIME 13.9 Seconds (11.0-16.0)
[2019-02-20 07:15] LABS: ALB/GLOB RATIO 1.4; ALBUMIN 3.4 g/dL (3.5-5.0); CALCIUM 7.9 mg/dL (8.8-10.2); CREATININE 0.9 mg/dL (0.5-0.9); POTASSIUM 4.2 mmol/L (3.5-5.1); TOTAL BILIRUBIN 0.49 mg/dL (0.20-1.00); TOTAL PROTEIN 5.8 g/dL (6.3-8.3)
[2019-02-20] MEDS: ASPIRIN PO SCH (08:26)
[2019-02-20] MEDS: MACROBID PO SCH (08:26)
[2019-02-20] MEDS: CYMBALTA PO SCH (08:26)
[2019-02-20] MEDS: SYNTHROID PO SCH (08:26)
[2019-02-20] MEDS: PATIENT'S OWN MED PO SCH (08:27)
[2019-02-20] MEDS ORDERED: HEPARIN 1000 UNITS/NS 2,000 UNIT/1,000 ML IV.SOLN ONE (08:33)
[2019-02-20 08:46] LABS: CHOLESTEROL 163 mg/dL (0-200); HDL 47 mg/dL (45-65); LDL 98 mg/dL; TRIGLYCERIDES 91 mg/dL (35-135); VLDL 18 mg/dL
--- NOTE | 2019-02-20 08:49 | CARDIOLOGY PROGRESS NOTE ---
DATE: 02/20/2019 SUBJECTIVE: Ms. Noonan had no issues last night. She is tolerating oral intake. No pain complaints. No orthopnea. OBJECTIVE: Vital Signs: Afebrile, heart rate 74, her blood pressure is 100/88, which is a significant improvement from previous. General: She is in no acute distress. Cardiovascular: She sounds to be in a regular rate and rhythm. No murmurs. No S3. Chest: Sounds clear bilaterally. She has no increased work of breathing. Abdomen: Soft, nontender. PERTINENT DATA: Her white count is 11, her hematocrit is 40, her platelet count is 268,000. Her sodium is 141, potassium 4.2, BUN 19, creatinine 0.9. Her INR is 1.0. ASSESSMENT: Ms. Noonan is an 83-year-old female who had a difficult quality stress at her primary care physician's office. She has had episodes of chest pain. PLAN: We will proceed with cardiac catheterization today. I discussed the risks, benefits, and alternatives with the patient and the family yesterday, and they have agreed to proceed. Further recommendations to follow the results of that testing. cc: MD Hari Damian MD
[2019-02-20] MEDS ORDERED: COZAAR PO SCH (09:00)
[2019-02-20] MEDS ORDERED: NITROGLYCERIN ONE (12:30)
[2019-02-20] MEDS ORDERED: NS 1,000 ML ONE (12:31)
[2019-02-20] MEDS ORDERED: CLAVE PUMP SET NO FILTER 12260 ONE (12:31)
[2019-02-20] MEDS ORDERED: CLAVE TWINSITE 32 IN 11959 ONE (12:31)
[2019-02-20] MEDS ORDERED: VERSED ONE (12:31)
[2019-02-20] MEDS ORDERED: DILAUDID ONE (12:31)
[2019-02-20] MEDS ORDERED: SODIUM CHLORIDE 0.9% 10 ML ONE (12:31)
[2019-02-20] MEDS: LASIX PO SCH (14:07)
--- NOTE | 2019-02-20 14:48 | EKG Report ---
Test Performed on : 02/20/2019 2:35:16 PM Test Reason : post cath Blood Pressure : / mmHG Vent. Rate : 061 BPM Atrial Rate : 061 BPM P-R Int : 176 ms QRS Dur : 082 ms QT Int : 414 ms P-R-T Axes : 080 020 037 degrees QTc Int : 416 ms Normal sinus rhythm. Cannot rule out Anterior infarct , age undetermined Abnormal ECG When compared with ECG of 17-FEB-2019 18:31, No significant change was found Confirmed by Gerald HUFF, Austin Keller ([id number]) on 02/20/2019 3:32:16 PM
--- NOTE | 2019-02-20 16:08 | CARDIAC CATH REPORT ---
PROCEDURE NAME: - INDICATION FOR THE PROCEDURE: Patient with chest discomfort. She had a nuclear scan that showed possible defects in the inferior lateral wall. PROCEDURES PERFORMED: 1. Left heart catheterization. 2. Selective coronary angiography. PROCEDURE IN DETAIL: Ms. Noonan was brought to the catheterization laboratory in a fasting state. Informed consent was obtained. Prepped in usual fashion. She was anesthetized over the right radial and after Braxton's test proved adequate, a 5-Khmer sheath was placed. Sheaths and catheters were introduced. Hemodynamic measurements were made in the ascending thoracic aorta. Coronary angiography was performed in multiple views using a JL-3.5 and an MPA-1 for the right. The left heart catheterization was performed using the MPA-1. At the conclusion of the procedure all sheaths and catheters were removed. TR band was left inflated at 17 mL of air with good capillary refill, good hemostasis. CONTRAST: 110 mL. BLOOD LOSS: 5-10 mL. FINDINGS: 1. The left main was nonexistent. The circumflex originated from the right coronary. 2. Left anterior descending originated from the aorta. There were minor luminal irregularities in the mid vessel with minimal disease, as well as in the first and second diagonals. Otherwise, it was large and normal vessel. 3. 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 It actually appears to have possibly its own origination. It does not appear to come off directly from the RCA. The circumflex appeared to be normal throughout its course. 4. The right coronary was large and dominant. 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 Both the circumflex and the right coronary had vertical takeoffs. There was minor disease noted in the ostial right coronary but otherwise it was normal. It was a large vessel. 5. The aortic blood pressure was 179/75 with a mean of 119. Left ventricle pressure 179/6 with an LVEDP of 17. ASSESSMENT: Ms. Noonan is an 83-year-old female who presented with anginal-type chest discomfort to her primary care physician's office. She had a difficult quality nuclear scan resulting in some suggested defects. PLAN: She has essentially no significant coronary disease on her cath. 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 She does not appear to have a coronary artery etiology to her chest discomfort. cc: MD Hari Damian MD
[2019-02-20 16:41] VITALS: BP 120/57
[2019-02-20] MEDS ORDERED: VITAMIN D PO SCH (19:00)
[2019-02-21] MEDS ORDERED: ASPIRIN PO SCH (09:00)
--- NOTE | 2019-02-21 13:14 | DISCHARGE SUMMARY ---
ADMISSION DATE: 02/17/2019 DISCHARGE DATE: 02/20/2019 DISCHARGING DIAGNOSIS: Atypical chest pain. Equivocal of Lexiscan with positive chest pain and subtle EKG changes. Left heart catheterization recommended. SECONDARY DIAGNOSES: 1. Hypertension 2. Urinary tract infection due to Escherichia coli. 3. Antithrombin 3 deficiency. 4. Multiple compression fractures in the back due to osteoporosis. 5. Hiatal hernia. 6. Hyperlipidemia. 7. Hypothyroidism. 8. Chronic lymphedema in both legs. 9. Metabolic syndrome. 10. History of BPV. 11. 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 12. T12 kyphoplasty. CONSULTS: Dr. Macdonald. 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 No flow limiting disease. BRIEF HISTORY: Please see the H P that was done. In brief, she is an 83-year-old white female, last stress test was done 2015, was evaluated with neck and chest pain going to the neck. EKG was unremarkable. Outpatient Lexiscan showed significant chest pain throughout the Lexiscan, subtle EKG changes. Initially, there were some defects in the scan, but it looks like some artifact. Equivocal study. As a result of ongoing symptoms and risk factors, admitted to the hospital for left heart catheterization. Dr. Macdonald was consulted. Subsequent EKGs, cardiac enzymes were normal. The patient was pain-free. She had UTI for which she was given Macrobid 100 p.o. b.i.d. Left heart catheterization findings were reassuring. Continue primary prevention. LABS: CBC: White count 11, hematocrit 40, platelets 268,000, PT 13, INR 1.0, D-dimer 0.8. Sodium 140, potassium 4.2, chloride 104, BUN 19, creatinine 0.9, glucose 88. LFTs were normal. Cardiac enzymes were negative. LFTs were normal. Cholesterol 163, LDL 98. Urinalysis is clear. Blood cultures are positive for Klebsiella and sensitive to Macrobid. The patient has been discharged home with the following instructions: 1. Prilosec 40 mg daily. 2. Tramadol ER 300 mg at bedtime. 3. Ambien 5 mg at bedtime. 4. Naprosyn as needed for pain. 5. Xanax 0.25 as needed for anxiety. 6. Vitamin D 50,000 units once a week. 7. MiraLAX 17 g daily. 8. Simvastatin 20 daily. 9. Losartan 25 daily. 10. Cymbalta 20 mg daily. 11. Synthroid 75 mcg daily. 12. Lasix 20 daily. 13. Robaxin 750 t.i.d. as needed. 14. Zofran as needed for nausea. 15. Aspirin 81 mg daily. 16. Macrobid 100 p.o. b.i.d. for 1 week. 17. Lidoderm patches as needed for back pain and follow up in my office next week. cc: MD Mark Anthony Kiran MD Dr. Johnson MTDD
== END 2019-02-20 17:56 | disposition home or self-care (01) | DRG 287 ==
LOC: DIRADM 17:10 → 2N 17:23
PROVIDERS: ADMIT Internal Medicine; ATTEND Internal Medicine